=== PATIENT | female | born 1965 ===

== ENCOUNTER 2016-07-19 15:06 | Observation (INO) | payer MEDICAID ==
[2016-07-19 15:25] VITALS: TEMP 98.2; O2SAT 99
[2016-07-19] MEDS ORDERED: Sodium Chloride 0.9% 500 ML IV STA (15:37)
--- NOTE | 2016-07-19 15:54 | ED PDOC ---
HPI: Abdomen Time Seen by Provider: 07/19/16 15:24 Chief Complaint (Nursing): Abdominal Pain Chief Complaint (Provider): Abdominal Pain History Per: Patient History/Exam Limitations: no limitations Onset/Duration Of Symptoms: Days (x3), Gradual, Worse Since (x2 days) Current Symptoms Are (Timing): Still Present Location Of Pain/Discomfort: RLQ, Other (radiates to right flank) Quality Of Discomfort: "Pain" Associated Symptoms: Fever. denies: Nausea, Vomiting, Diarrhea, Loss Of Appetite, Constipation Additional Complaint(s): 51 year old female presents to ED with complaint of abdominal pain x3 days and has a past medical history of asthma. Notes that the pain is in her RLQ, radiates to her right flank x1 day, worsened over x2 days, and gradually onset. (+) fever (101 degrees), cough (secondary to asthma), and frequency of urination (chronic). (-) nausea, vomiting, diarrhea, decreased appetite, dysuria , hematuria, constipation, or vaginal discharge/bleeding. Patient states that ibuprofen provided minimum relief and took her last dose last night. Notes similar pain x1 year ago, but noted heavy vaginal bleeding and the diagnosis was fibroids. Believes symptoms to possibly be perimenopausal. PCP: Dr. Ganesh Webster Abnormal Vaginal Bleeding: No Last Menstral Period: April 2016 Past Medical History Reviewed: Historical Data, Nursing Documentation, Vital Signs Vital Signs: Last Vital Signs Temp 98.2 F 07/19/16 19:53 Pulse 78 07/19/16 19:53 Resp 18 07/19/16 19:53 BP 148/78 07/19/16 19:53 Pulse Ox 99 07/19/16 20:29 - Medical History PMH: Asthma Denies: No Chronic Diseases - Surgical History Surgical History: (5) - Family History Family History: States: CAD Other Family History: Mother had cancer - Social History Current smoker - smoking cessation education provided: No Ex-Smoker (has not smoked in the last 12 months): No Alcohol: None Drugs: Denies - Immunization History Hx Tetanus Toxoid Vaccination: No - Home Medications Home Medications: Ambulatory Orders Medication Instructions Recorded Ibuprofen [Motrin Tab] 600 mg PO Q8 PRN #60 tab 07/19/16 - Allergies Allergies/Adverse Reactions: Allergies Allergy/AdvReac Type Severity Reaction Status Date / Time morphine Allergy Mild SWELLING Verified 07/04/15 19:21 Review of Systems ROS Statement: Except As Marked, All Systems Reviewed And Found Negative Constitutional: Positive for: Fever (101 degrees) Respiratory: Positive for: Cough (secondary to asthma) Gastrointestinal: Positive for: Abdominal Pain (RLQ radiating to right flank). Negative for: Nausea, Vomiting, Diarrhea, Constipation, Other (decreased appetite) Genitourinary Female: Positive for: Frequency (chronic condition). Negative for : Dysuria, Hematuria, Vaginal Discharge, Vaginal Bleeding Physical Exam - Reviewed Nursing Documentation Reviewed: Yes Vital Signs Reviewed: Yes - Physical Exam Appears: Positive for: Well (well developed and nourished), In Acute Distress ( moderate painful distress) Skin: Positive for: Normal Color Eye Exam: Positive for: Normal appearance ENT: Negative for: Pharyngeal Erythema, Tonsillar Exudate Neck: Positive for: Painless ROM, Supple Cardiovascular/Chest: Positive for: Regular Rate, Rhythm. Negative for: Murmur Respiratory: Positive for: Normal Breath Sounds. Negative for: Wheezing, Respiratory Distress Gastrointestinal/Abdominal: Positive for: Soft, Tenderness (RLQ/RUQ tenderness, RLQ has exquisite TTP), Other ((+) McBurney's, (-) Justin's). Negative for: Mass, Distended, Guarding, Rebound Pelvic Exam: Positive for: External Exam Normal, Speculum Exam Normal, No Cerv. Motion Tender, No Masses (visualized on cervix or vaginal canal), Tender Uterus. Negative for: Discharge, Lesions Back: Positive for: R CVA Tenderness. Negative for: L CVA Tenderness Extremity: Positive for: Normal ROM, Other ((-) obturator and psoas signs). Negative for: Deformity Lymphatic: Negative for: Adenopathy Neurologic/Psych: Positive for: Alert, Oriented. Negative for: Motor/Sensory Deficits - Laboratory Results Result Diagrams: 07/19/16 15:55 07/19/16 15:55 - ECG O2 Sat by Pulse Oximetry: 99 (RA) Pulse Ox Interpretation: Normal Medical Decision Making Medical Decision Makin Initial impression: abdominal pain DDx: included but not limited to - fibroids, ovarian ysts, renal colic, colitis , enteritis4 Patient has allergy to morphine and prefers pain medication similar to ibuprofen , naproxen. If pain isn't controlled with these medications, will offer opiates with benadryl. Initial plan: * CTA A/P * Labs * UDrug Screen * Lactic Acid * Lipase * PTT/PT * NS IV * Toradol 15mg IVP * BCx * UCx * ED OBS ADMIT * UA 1823 CT FINDINGS LOWER THORAX: Unremarkable. LIVER: Hepatic steatosis. No focal masses. No intrahepatic bile duct dilatation or perihepatic ascites. GALLBLADDER AND BILE DUCTS: Unremarkable. PANCREAS: Unremarkable. No gross lesion or ductal dilatation. SPLEEN: Unremarkable. ADRENALS: Unremarkable. No mass. KIDNEYS AND URETERS: Unremarkable. No hydronephrosis. No solid mass. VASCULATURE: Unremarkable. No aortic aneurysm. BOWEL: Unremarkable. No obstruction. No gross mural thickening. APPENDIX: Normal appendix. PERITONEUM: Unremarkable. No free fluid. No free air. LYMPH NODES: Unremarkable. No enlarged lymph nodes. BLADDER: Unremarkable. REPRODUCTIVE: Enlarged and anteverted uterus without focal abnormality. BONES: No acute fracture. OTHER FINDINGS: None. IMPRESSION: No significant or acute findings to account for/ related to the clinical presentation. Additional benign and/or incidental findings described above. Scribe Attestation: Documented by Rosalia Gonzales acting as a scribe for Silvia Logan MD. Scribe Attestation: All medical record entries made by the Scribe were at my direction and personally dictated by me. I have reviewed the chart and agree that the record accurately reflects my personal performance of the history, physical exam, medical decision making, and the department course for this patient. I have also personally directed, reviewed, and agree with the discharge instructions and disposition. ED OBSERVATION Date of observation admission: 07/19/16 Time of observation admission: 15:39 - Observation admission statement Patient is being placed in observation because:: In ED OBS because of time-intensive workup and need for serial abdominal exams - Goals of Observation Goals of observation are:: Goals: definitive diagnosis, treatment, and appropriate pain control - Progress Note Progress Note: 07/19/16 20:27 EXAM: US Pelvis, Transvaginal CLINICAL HISTORY: 51 years old, female; Pain; Pelvic pain; Additional info: Severe pelvic pain irregular periods, LMP 04/2016 TECHNIQUE: Real-time transvaginal pelvic ultrasound (complete) with image documentation. Transvaginal imaging was used for better evaluation of the endometrium and adnexa. EXAM DATE/TIME: 07/19/2016 6:33 PM COMPARISON: There are no prior studies for comparison. FINDINGS: Uterus/cervix: Uterus measures approximately 10 x 5 x 6 cm. Endometrium measures 6.3 mm in width. Myometrium is mildly heterogeneous. There is a 2.5 x 1.8 x 2.7 cm posterior fibroid. There is a 1.1 71.01 x 1.3 cm mass in the cervix. There is a nabothian cyst in the cervix. Right ovary: Right ovary measures approximately 2.10 x 1.66 x 1.95 cm.There are multiple small follicles. There is intraovarian blood flow. Left ovary: Left ovary measures approximately 1.71 x 1.07 x 1.54 cm.There is expected blood flow on Doppler imaging Free fluid: There is no free fluid. Bladder: Bladder is empty IMPRESSION: Polypoid mass in the cervix; fibroid uterus; no ovarian torsion Gynecologic consultation is Thank you for allowing us to participate in the care of your patient. Dictated and Authenticated by: Melani Chang MD DW pt and son findings at length. Pt reports that she had biopsy may 2015 ( most likely endometrial, but may have been just cervical/culposcopy) and was told that she had benign fibroma. Also reports that she was told she had a " cyst on her uterus." She was told that the fibroid did not need any other treatment because she would be going through menopause soon. Advised that she needed to follow up again with gynecology, and perhaps repeat biopsy for further evaluation of cervical mass. Disposition - Clinical Impression Clinical Impression: Fibroid, Mass of cervix determined by ultrasound Counseled Patient/Family Regarding: Studies Performed, Diagnosis, Need For Followup, Rx Given - Disposition Disposition Time: 15:40 Condition: STABLE
[2016-07-19 16:34] LABS: BASO % 0.6 % (0.0-2.0); EOS # 0.5 K/uL (0.0-0.7); EOS % 6.9 % (0.0-4.0); LYMPH # 2.2 K/uL (1.0-4.3); LYMPH % 32.5 % (20.0-40.0); MEAN CELL VOLUME 65.1 fl (81.0-99.0); MEAN CORPUSCULAR HGB CONC 29.2 g/dL (33.0-37.0); MEAN PLATELET VOLUME 9.2 fl (7.2-11.7); MONO # 0.6 K/uL (0.0-0.8); MONO % 9.2 % (0.0-10.0); NEUT # 3.5 K/uL (1.8-7.0); NEUT % 50.8 % (50.0-75.0); RED CELL DISTRIBUTION WIDTH 23.8 % (11.5-14.5); WHITE BLOOD COUNT 6.8 K/uL (4.8-10.8)
[2016-07-19 16:44] LABS: ALB/GLOB RATIO 1.3 (1.0-2.1); ALKALINE PHOSPHATASE 84 U/L (38-126); ALT/SGPT 30 U/L (9-52); AST/SGOT 34 U/L (14-36); BILIRUBIN,TOTAL 0.2 mg/dl (0.2-1.3); BLOOD UREA NITROGEN 15 mg/dl (7-17); CALCIUM 9.1 mg/dL (8.4-10.2); CARBON DIOXIDE 23 mmol/L (22-30); CHLORIDE 107 mmol/L (98-107); GFR AFRICAN-AMERICAN > 60; GLUCOSE,RANDOM 85 mg/dL (65-105); LIPASE 130 U/L (23-300); POTASSIUM 4.3 MMOL/L (3.6-5.0); SODIUM 142 mmol/l (132-148); TOTAL PROTEIN 7.6 G/DL (6.3-8.2)
[2016-07-19 16:52] LABS: PARTIAL THROMBOPLASTIN TIME 24.1 SECONDS (23.3-32.5)
[2016-07-19] MEDS ORDERED: Iohexol 300 100 ML IJ ONE (17:15)
[2016-07-19] MEDS ORDERED: Sodium Chloride 0.9% 50 ML IV ONE (17:15)
--- NOTE | 2016-07-19 18:25 | CT ---
PROCEDURE: CT Abdomen and Pelvis with contrast HISTORY: Right lower quadrant abdominal pain COMPARISON: None. TECHNIQUE: Contrast dose: 90 cc Omnipaque 300. Radiation dose: Total exam DLP = 1008.29 mGy-cm. This CT exam was performed using one or more of the following dose reduction techniques: Automated exposure control, adjustment of the mA and/or kV according to patient size, and/or use of iterative reconstruction technique. FINDINGS: LOWER THORAX: Unremarkable. LIVER: Hepatic steatosis. No focal masses. No intrahepatic bile duct dilatation or perihepatic ascites. GALLBLADDER AND BILE DUCTS: Unremarkable. PANCREAS: Unremarkable. No gross lesion or ductal dilatation. SPLEEN: Unremarkable. ADRENALS: Unremarkable. No mass. KIDNEYS AND URETERS: Unremarkable. No hydronephrosis. No solid mass. VASCULATURE: Unremarkable. No aortic aneurysm. BOWEL: Unremarkable. No obstruction. No gross mural thickening. APPENDIX: Normal appendix. PERITONEUM: Unremarkable. No free fluid. No free air. LYMPH NODES: Unremarkable. No enlarged lymph nodes. BLADDER: Unremarkable. REPRODUCTIVE: Enlarged and anteverted uterus without focal abnormality. BONES: No acute fracture. OTHER FINDINGS: None. IMPRESSION: No significant or acute findings to account for/ related to the clinical presentation. Additional benign and/or incidental findings described above.
[2016-07-19 20:10] LABS: RBC URINE 3 /hpf (0-3); URINE BACTERIA RARE (<OCC); URINE BILIRUBIN NEGATIVE (NEGATIVE); URINE BLOOD NEGATIVE (NEGATIVE); URINE COLOR YELLOW (YELLOW); URINE GLUCOSE (UA) NEG (Normal); URINE KETONE NEGATIVE (NEGATIVE); URINE LEUKOCYTE ESTERASE NEG Leu/uL (Negative); URINE PROTEIN NEGATIVE (NEGATIVE); URINE UROBILINOGEN 0.2-1.0 mg/dL (0.2-1.0); WBC URINE 1 /hpf (0-5)
--- NOTE | 2016-07-19 20:16 | US ---
EXAM: US Pelvis, Transvaginal CLINICAL HISTORY: 51 years old, female; Pain; Pelvic pain; Additional info: Severe pelvic pain irregular periods, LMP 04/2016 TECHNIQUE: Real-time transvaginal pelvic ultrasound (complete) with image documentation. Transvaginal imaging was used for better evaluation of the endometrium and adnexa. EXAM DATE/TIME: 07/19/2016 6:33 PM COMPARISON: There are no prior studies for comparison. FINDINGS: Uterus/cervix: Uterus measures approximately 10 x 5 x 6 cm. Endometrium measures 6.3 mm in width. Myometrium is mildly heterogeneous. There is a 2.5 x 1.8 x 2.7 cm posterior fibroid. There is a 1.1 71.01 x 1.3 cm mass in the cervix. There is a nabothian cyst in the cervix. Right ovary: Right ovary measures approximately 2.10 x 1.66 x 1.95 cm.There are multiple small follicles. There is intraovarian blood flow. Left ovary: Left ovary measures approximately 1.71 x 1.07 x 1.54 cm.There is expected blood flow on Doppler imaging Free fluid: There is no free fluid. Bladder: Bladder is empty IMPRESSION: Polypoid mass in the cervix; fibroid uterus; no ovarian torsion Gynecologic consultation is
[2016-07-19 21:55] VITALS: BP 148/78; PULSE 78; RESP 18
== END 2016-07-19 21:55 | disposition home or self-care (01) ==
LOC: H.ER 15:06 → H.EROBSV 15:39
PROVIDERS: ADMIT Emergency Medicine; ATTEND Emergency Medicine
DX: D25.9 Leiomyoma of uterus, unspecified (principal); R10.31 Right lower quadrant pain; J45.909 Unspecified asthma, uncomplicated; Z88.5 Allergy status to narcotic agent; Z80.9 Family history of malignant neoplasm, unspecified